=== PATIENT | male | born 1945 | race Caucasian/White ===

== ENCOUNTER → 2016-12-15 | Outpatient (CLI) | payer MEDICARE, BC | END | disposition home or self-care (01) | LOC: CFH 06:58 | PROVIDERS: ATTEND Nurse Practitioner Family | DX: K80.20 Calculus of gallbladder without cholecystitis without obstruction (principal); N28.1 Cyst of kidney, acquired; R16.1 Splenomegaly, not elsewhere classified; R94.5 Abnormal results of liver function studies | CPT/HCPCS: 76700 ==

== ENCOUNTER 2017-02-02 06:38 | Day surgery (SDC) | payer MEDICARE, BC ==
[~2017-02-02] VITALS: Ht 185.4 cm; Wt 104.5 kg
[~2017-02-02 06:38] MED LIST: AMLO-298 PO; ASCO10004 PO; ASCO1CAP2 PO; GLUC1500 PO; MULT-717 PO; OMEG100023 PO; TURMERIC PO; VIT1CAPS42 PO
[2017-02-02] MEDS ORDERED: ONDANSETRON 2MG/ML, 2ML IVPush PRN ×2 (07:00→10:30)
[2017-02-02] MEDS ORDERED: morphine SULFATE 10 MG/ML, 1ML IV PRN (07:00)
[2017-02-02] MEDS ORDERED: LABETALOL 5MG/ML, 20ML IV PRN (07:00)
[2017-02-02] MEDS ORDERED: ALBUTEROL/IPRATROPIUM 2.5MG/0.5MG, 3 ML NPPB PRN (07:00)
[2017-02-02] MEDS ORDERED: EPHEDRINE 50 MG/ML, 1ML IVPush PRN (07:00)
[2017-02-02] MEDS ORDERED: OXYcodone 5 MG/5 ML ORAL.SOL UDC PO PRN (07:00)
[2017-02-02] MEDS ORDERED: MEPERIDINE/PF 25MG/0.5ML IVPush PRN (07:00)
[2017-02-02] MEDS ORDERED: KETOROLAC 30 MG/1 ML IV PRN (07:00)
[2017-02-02] MEDS ORDERED: MIDAZOLAM 1 MG/ML, 2ML IV PRN (07:00)
[2017-02-02] MEDS ORDERED: HYDROcodone/APAP 7.5-325MG/15ML UDC PO PRN (07:00)
[2017-02-02] MEDS ORDERED: METOCLOPRAMIDE 5 MG/ML, 2ML IV PRN (07:00)
[2017-02-02] MEDS ORDERED: HYDROmorphone 1 MG/ML, 1ML IV PRN (07:00)
[2017-02-02] MEDS ORDERED: LACTATED RINGERS 1,000 ML IV SCH (07:08)
[2017-02-02] MEDS ORDERED: EPINEPHRINE 1 MG/ML, 1ML ONE (07:14)
[2017-02-02] MEDS ORDERED: INDOCYANINE GREEN 25 MG VIAL ONE (07:14)
[2017-02-02] MEDS ORDERED: BUPIVACAINE/PF 0.5% ONE (07:14)
[2017-02-02 07:27] VITALS: BP 157/89
[2017-02-02] MEDS ORDERED: MIDAZOLAM 1 MG/ML, 2ML ONE (07:39)
[2017-02-02] MEDS ORDERED: FENTANYL PF 100 MCG/2ML ONE ×5 (07:39→10:45)
[2017-02-02 07:53] LABS: HEMATOCRIT 50.8 % (39.2-51.8); HEMOGLOBIN 17.4 g/dL (13.7-18.0); WHITE BLOOD COUNT 5.5 x10^3/uL (3.4-10)
[2017-02-02] MEDS ORDERED: MAGNESIUM SULFATE 1 GM/2 ML ONE ×2 (08:04→08:45)
[2017-02-02] MEDS ORDERED: PHENYLEPHRINE 10 MG/ML ONE (08:42)
[2017-02-02] MEDS ORDERED: CEFAZOLIN 1,000 MG ONE (09:13)
[2017-02-02] MEDS ORDERED: PROPOFOL 10 MG/ML, 20ML ONE (09:16)
[2017-02-02] MEDS ORDERED: ROCURONIUM 10 MG/ML ONE (09:16)
[2017-02-02] MEDS ORDERED: DEXAMETHASONE 4 MG/ML, 1ML ONE (09:16)
[2017-02-02] MEDS ORDERED: GLYCOPYRROLATE 0.2MG/1ML, 5ML ONE (09:16)
[2017-02-02] MEDS ORDERED: LIDOCAINE 2% 100MG/5ML SYRINGE ONE (09:16)
[2017-02-02] MEDS ORDERED: KETOROLAC 30 MG/1 ML ONE (10:23)
[2017-02-02] MEDS ORDERED: OXYcodone 5 MG/5 ML ORAL.SOL UDC ONE (10:23)
[2017-02-02] MEDS ORDERED: ACETAMINOPHEN 650 MG/20.3 ML UDC ONE (10:23)
[2017-02-02] MEDS: FENTANYL PF 100 MCG/2ML IV PRN ×3 (10:26→10:59)
[2017-02-02] MEDS ORDERED: KETOROLAC 30 MG/1 ML IVPush PRN (10:30)
[2017-02-02] MEDS ORDERED: morphine SULFATE 10 MG/ML, 1ML IVPush PRN (10:30)
[2017-02-02] MEDS ORDERED: ACETAMINOPHEN 650 MG/20.3 ML UDC PO PRN (11:00)
== END 2017-02-02 14:35 ==
LOC: OUT 06:38
PROVIDERS: ATTEND Surgery
DX: K80.10 Calculus of gallbladder with chronic cholecystitis without obstruction (principal); I10 Essential (primary) hypertension
CPT/HCPCS: 36415; 47562; 85025; 88304; J0171; J0690; J1100; J1885; J2250; J2370; J2704; J3010; J3475; J3490

== ENCOUNTER → 2017-10-22 | Outpatient (CLI) | payer MEDICARE, BC ==
[~2017-10-22] MED LIST changes: -AMLO-298 PO; +AMLO-307 PO; -GLUC1500 PO; +GLUC15006 PO
== END | disposition home or self-care (01) ==
LOC: CFH 14:28
PROVIDERS: ATTEND Nurse Practitioner Family
DX: M47.896 Other spondylosis, lumbar region (principal); M17.12 Unilateral primary osteoarthritis, left knee; M51.36 Other intervertebral disc degeneration, lumbar region; I10 Essential (primary) hypertension
CPT/HCPCS: 72110